=== PATIENT | male | born 2000 ===

== ENCOUNTER 2020-01-13 19:39 | Outpatient (REF) | payer SELFPAY ==
[2020-01-13 21:37] LABS: Mean Corp. HGB Concentration 34.1 g/dL (32.0-36.0); Mean Corpuscular Hemoglobin 26.4 pg (27.0-33.0); Mean Corpuscular Volume 77.2 fL (80-95); Mean Platelet Volume 9.7 fL (8.0-11.0); Platelet Count 367 x1000/uL (130-400); RBC 5.31 m/cumm (4.50-6.00); RBC Distribution Width 13.6 % (11.8-14.1); White Blood Cell Count 5.98 k/cumm (4.4-10.8)
[2020-01-13 22:40] LABS: Anion Gap 4.2 mmol/L (3-11); BUN 11 mg/dL (7-18); CO2 28.8 mmol/L (21.0-32.0); CREATININE 0.96 mg/dL (0.70-1.30); Calcium 8.9 mg/dL (8.5-10.1); Chloride 104 mmol/L (98-107); Glucose 95 mg/dL (74-106); Potassium 3.9 mmol/L (3.5-5.1); Sodium 137 mmol/L (136-145); TSH (W/Ref FT4) 1.22 uIU/mL (0.36-3.74)
== END 2020-01-13 19:59 ==
LOC: NCHCN 19:39
PROVIDERS: Visit Provider Nurse Practitioner Community Health
DX: E86.0 Dehydration (principal)
CPT/HCPCS: 80048; 85027; 84443